=== PATIENT | female | born 1995 | race Caucasian/White ===

== ENCOUNTER 2025-04-03 13:29 | Emergency (ER) | payer OTHER, SELFPAY ==
[2025-04-03 13:31] VITALS: BP 147/93
--- NOTE | 2025-04-03 14:03 | ED.GENMED ---
History of Present Illness
General
Chief Complaint: Visual Problem
Source: patient and family
Exam Limitations: none
Time Seen by Provider: 04/03/25 13:51
Nursing documentation reviewed up to this point in time: agreed with
History of Present Illness
History of Present Illness:
29-year-old female with distant history of migraines presents to the ER for evaluation of visual disturbance. Patient reports symptoms started abruptly about 15 minutes prior to arrival. She reports initially having a small blurry spot in her left
eye that progressed to blurry distortion of left lateral visual field. No symptoms in her right eye and symptoms improved with closure of the left eye. She denies dark spots or vision loss. Came to the ER for assessment. She denies any
associated symptoms such as speech disturbance, weakness or numbness in extremities, headache or neck pain. She says that she did have similar symptoms with migraines and ocular migraines in the past but has not had one for over 10 years.
Past History
Past History
ED Past Medical History: Psychiatric (Depression)
ED Past Surgical History: None
Social History
Tobacco: Non-smoker
Alcohol: None
Drug: None
Review of Systems
Review of Systems
All Other Systems: ROS reviewed and negative except as documented in HPI and ROS
EENT: Reports other (Visual disturbance)
Respiratory: Denies trouble breathing
Cardiac: Denies chest pain
ABD/GI: Denies nausea or vomiting
Neurological: Denies dizzy, headache, weakness or numbness
Phy Exam
Physical Exam
Physical Exam:
General: Awake, alert, oriented x3; no acute distress
Head: Normocephalic, atraumatic
Eyes: Conjunctiva normal, EOMI, pupils equal round and reactive to light bilaterally; visual holder are intact including left lateral visual field; funduscopic exam normal bilaterally with no optic disc abnormalities or vascular abnormalities noted
Throat: Airway intact, handling secretions
Neck: Trachea midline, supple without meningismus
Lungs: Breathing comfortably with no distress, no evidence of cyanosis, no tachypnea or hypoxia
Heart: Regular rate and rhythm no murmurs gallops or rubs appreciated
Neuro: Cranial nerves intact 2 through 12, speech fluid without dysarthria or aphasia, no limb ataxia, motor and sensory intact in all extremities proximally distally, ambulatory steady gait
Skin: Warm and dry
Extremities: No edema in extremities, equal pulses in all extremities
Scores
NIH Stroke Score
Level of Consciousness: 0 - Alert
LOC Questions: 0-Answers both correctly
LOC Commands: 0-Performs both correctly
Best Horizontal Gaze: 0-Normal
Visual Holder: 0=Normal, no visual loss
Facial Palsy: 0=Normal, symmetrical
Motor - Right Arm: 0=No drift 10 seconds
Motor - Left Arm: 0=No drift 10 seconds
Motor - Right Le-No drift 5 seconds
Motor - Left Le-No drift 5 seconds
Limb Ataxia: 0-Absent
Sensation: 0-Normal
Best Language: 0-No aphasia
Dysarthria: 0-Normal
Extinction and Inattention: 0-No abnormality
NIH Total Score:: 0
Heart Failure Risk
Heart Failure Risk Score: Not Applicable
Heart Score for Chest Pain Patients
STEMI patient?: Not applicable
Withdrawal Assessment of Alcohol
Withdrawal Assessment Completed?: Not applicable
Course
Orders/Labs/Results
Orders:
Orders
04/03/25 14:01
Ibuprofen [Motrin] 400 mg PO NOW STA
04/03/25 14:03
Visual Acuity- Treatment ONCE
Vital Signs
Initial and Last Documented VS:
Initial Vital Signs
Temp Pulse Resp BP Pulse Ox
36.8 C 76 18 147/93 94
04/03/25 13:31 04/03/25 13:31 04/03/25 13:31 04/03/25 13:31 04/03/25 13:31
Last Documented Vital Signs
Temp Pulse Resp BP Pulse Ox
36.8 C 76 18 147/93 94
04/03/25 13:31 04/03/25 13:31 04/03/25 13:31 04/03/25 13:31 04/03/25 14:06
MDM/Problems Addressed
Differential Diagnosis Includes:
Migraine, vitreous hemorrhage, retinal detachment, glaucoma; low suspicion for stroke or dissection or other [employer] emergency based on full clinical picture
MDM/Problems Addressed:
29-year-old female presents with a visual disturbance as described above. Started shortly prior to arrival here. Similar to prior migraine/ocular migraines but she has not had one in over 10 years. Vitals and exam as above. Overall suspect that
this is a migraine. In my judgment no negation for any emergent testing at this point. Patient says that previously she would develop headache after this and so we will treat with some ibuprofen. Will monitor clinically. Patient comfortable with
this plan.
Patient now developed headache consistent with prior migraines. Visual aura has resolved. She is requesting discharge at this point to go home and rest. I think is a reasonable plan. All questions answered.
*Pulse Oximetry
SaO2: 94
Oxygen Mode of Delivery: Room air
Patient hypoxic: no (94%)
*Critical Care Note
Total Time (30-74mins, 75-104mins- exclusive of procedures): Not Applicable
Data Reviewed
Further Testing Considered But Not Given:
Considered CT head
ED Attending Note
-
Portions of this chart may have been created with voice recognition software.� Occasional wrong word or��sound alike� substitutions may have occurred due to the inherent limitations of voice recognition software.
Discharge Plan
Departure
Patient Disposition: Home (Routine Discharge)
Date of Disposition: 04/03/25
Time of Disposition: 14:52
Patient with high blood pressure during this ER visit?: Yes
Discharge Problem:
Migraine with aura
Instructions: Migraines (DC)
Prescriptions:
No Action
levonorgestrel-ethinyl estrad [Orsythia] 1 EACH tablet
1 ea PO Daily
lysine 1,000 MG tablet
1,000 mg PO Daily
sertraline 25 MG tablet
25 mg PO Daily
Referrals:
NONE,* [Family Provider, Internal Medicine]
Activity Restrictions/Additional Instructions:
Thank you for visiting the Emergency Department at [facility].
1. Please schedule a follow up appointment as directed. Call first thing tomorrow morning to make an appointment.
2. If indicated, please take your medications as instructed and indicated on discharge paperwork.
3. If any of your symptoms do not improve, or persist, or become more severe within 6-12 hours, please return to the emergency department for further care.
4. Please return to the emergency department if you develop a headache, neck pain/stiffness, fever greater than 100.4F, chest pain, shortness of breath, persistent nausea, vomiting, slurred speech, difficulty walking, numbness/tingling, weakness,
signs of infection or any other symptoms that are worrisome to you.
Please call [phone] if you have any questions.
Interventions
Interventions:
*Risk Screen - Suicide Last Done: 04/03/25 13:31
*General Assessment Last Done: 04/03/25 13:31
Discharge Date and Time
Print Language: AMHARIC
[2025-04-03] MEDS: MOTRIN 400 MG PO (14:54)
== END 2025-04-03 15:04 | disposition home or self-care (01) ==
LOC: EMR 13:29
PROVIDERS: EMERGENCY PHYSICIAN Emergency Medicine
DX: G43.109 Migraine with aura, not intractable, without status migrainosus (principal); R03.0 Elevated blood-pressure reading, without diagnosis of hypertension; F32.A Depression, unspecified
CPT/HCPCS: 99283